=== PATIENT | male | born 1950 | race American Indian/Alaskan Native ===

== ENCOUNTER 2021-03-20 05:35 | Day surgery (SDC) | payer MEDICARE, OTHER ==
[~2021-03-20] VITALS: Ht 175.3 cm; Wt 88.2 kg
[~2021-03-20 05:35] MED LIST: ATORVASTATIN CA40 MG PO; CARVEDILOL12.5 MG PO; D-20002000 UNIT PO; FOLIC ACID1 MG PO; GABAPENTIN300 MG PO; HYDRALAZINE HCL25 MG PO; HYDRALAZINE HCL50 MG PO; IPRATROPIUM BRO15 ML NAS; ISOSORBIDE DINIT5 MG PO; LISINOPRIL5 MG PO; MULTI COMPLETE1 EACH PO; OXYCODONE HCL5 MG PO; RANITIDINE HCL75 MG PO; TREXALL5 MG PO; VENTOLIN HFA18 GM; WARFARIN SODIUM5 MG PO; ZITHROMAX250 MG PO; ZOCOR10 MG PO
[2021-03-20] MEDS ORDERED: GABAPENTIN300 MG PO (08:56)
[2021-03-20] MEDS ORDERED: OXYCODONE HCL5 MG PO (08:56)
[2021-03-20] MEDS ORDERED: SENNA LAX8.6 MG PO (08:56)
--- NOTE | 2021-03-20 09:05 | NUR ---
03/20/21 0905 Cesar,Odilia 0827 PT ARRIVED TO PACU ON 6L VIA MASK, PT SNORING AND NONAROUSABLE. ON-Q IN PLACE SET AT 4. VSS.
--- NOTE | 2021-03-20 09:57 | NUR ---
0945: PT RETURNS TO UNIT FROM PACU VIA STRETCHER. DROWSY ON ARRIVAL, WAKES WITH VERBAL STIMULATION AND ANSWERS QUESTIONS APPROPRIATELY. VSS, RESP EVEN AND UNLABORED. DENIES PAIN AND NAUSEA. DRESSING C/D/I. SCDS AND CRYO CUFF IN PLACE. ICE WATER AND CRACKERS PROVIDED. DENIES NEEDS AND REQUESTS AT THIS TIME, CALL LIGHT WITHIN REACH
--- NOTE | 2021-03-20 11:53 | NUR ---
1130: PT WAKES WHEN THIS RN ENTERS THE ROOM. VSS, RESP EVEN AND UNLABORED. SPINAL BLOCK COMPLETELY WORN OFF AND NORMAL SENSATION RETURNED. DRESSING C/D/I. PT DANGLES AT THE BEDSIDE AND MENDOZA WELL, DENIES DIZZINESS AND SOB. STANDS AT THE BEDSIDE WITH STANDBY ASSISTANCE FROM THIS RN. FIRST SUCCESSFUL POSTOP VOID 300ML. BACK TO STRETCHER WITH RN ASSISTANCE. SCDS AND CRYO CUFF IN PLACE. DENIES PAIN AND NAUSEA. REG LUNCH TRAY EN ROUTE. NO NEEDS VOICED, CALL LIGHT WITHIN REACH
--- NOTE | 2021-03-20 11:57 | NUR ---
1145: REG LUNCH TRAY ARRIVES, NO NEEDS VOICED. CALL LIGHT WITHIN REACH
--- NOTE | 2021-03-20 12:45 | NUR ---
1241: PT COMPLETES REG LUNCH AT THIS TIME. VSS, RESP EVEN AND UNLABORED. DRESSING REMAIN C/D/I. SCDS AND CRYO CUFF IN PLACE. DENIES PAIN AND NAUSEA AT THIS TIME. COMFORTABLE WITHOUT NEEDS OR REQUESTS, CALL LIGHT WITHIN REACH.
--- NOTE | 2021-03-20 13:58 | NUR ---
1345: PT RETURNS TO ROOM 6 AFTER PHYSICAL THERAPY SESSION. CLEARED FOR D/C PER PHYSICAL THERAPIST. PT COMFORTABLE, DENIES PAIN AND NAUSEA AT THIS TIME. DRESSING REMAINS C/D/I. 1400: TC PLACED TO MD SERGIO AND D/C ORDER RECEIVED
--- NOTE | 2021-03-20 14:25 | NUR ---
1420: SECOND DOSE OF ABX ADMINISTERED IV PRIOR TO D/C ORDERED BY . SL FLUSHED. IV REMOVED AND PRESSURE APPLIED TO SITE, WNL. VSS, RESP EVEN AND UNLABORED. DENIES PAIN AND NAUSEA AT THIS TIME. SCDS AND CRYO CUFF REMOVED. D/C INSTRUCTIONS PROVIDED AND DISCUSSED ORDERED. PT VOICES UNDERSTANDING AND DENIES QUESTIONS AND CONCERNS AT THIS TIME. TO DRESS SELF FOR DC, DENIES NEED FOR ASSISTANCE 1435: PT WHEELED OF OF UNIT BY NAOMIE NOLASCO. NO PHYSICAL S/S OF DISTRESS AT THIS TIME
--- NOTE | 2021-03-22 16:21 | OR ---
[facility] [address] [place], [place] [address] Signed DATE OF OPERATION: 03/20/2021 SURGEON: Jessica Cevallos MD PREOPERATIVE DIAGNOSIS: Degenerative joint disease, left knee. POSTOPERATIVE DIAGNOSIS: Degenerative joint disease, left knee. PROCEDURE PERFORMED: Left total knee arthroplasty with Larry. DREDGE WORKER: Hoda Mitchell PA-C. Hoda was present and critical for all portions of procedure. ANESTHESIA: Spinal. BLOOD LOSS: 175 mL. TOURNIQUET TIME: 0. IMPLANTS: [place] Triathlon size 6, 9 mm polyethylene and a 35 mm patella. BRIEF HISTORY: Cynthia is a 70-year-old gentleman with bilateral knee arthritis. He had undergone successful right total knee with good results and wished to proceed with . Risks and benefits of operative treatment were discussed with him and he elected to proceed. DESCRIPTION OF PROCEDURE: Once consent was obtained, he was taken to the operating room. After adequate anesthesia, he was placed on operating room table. All downside pressure points were well padded and hip bump was placed on the left. The leg was then prepped and draped in a standard sterile fashion. The knee was approached through a standard midline incision Electronically Signed By: JESSICA CEVALLOS MD 03/22/21 1621 PATIENT NAME: CYNTHIA YUSUF OPERATIVE REPORT DATE OF : 46 REPORT #: [id number] PHYSICIAN: JESSICA CEVALLOS MD PCP: KAREN HANDY REPORT IS CONFIDENTIAL AND NOT TO BE RELEASED WITHOUT AUTHORIZATION [facility] [address] [place], [place] [address] Signed anteriorly, carried through the skin and subcutaneous tissue. The infrapatellar fat pad was excised and the MCL was elevated as a subperiosteal sleeve around to the posteromedial corner. The patella was subluxed laterally and the anterior horn of the lateral meniscus and the ACL were transected. Medial meniscus was absent. The knee was flexed and the computer check points were placed in the medial femoral condyle and proximal tibia. The computer rays were placed similarly. The leg was then registered with the computer as was the fine anatomic points of the knee. The computer was then brought in and the straight cuts were made starting with the tibia. Care was taken to protect the patellar tendon and MCL. The blade was then switched to the angle blade and the 2 angle cuts were made. All bone pieces were then removed as were any remaining osteophytes. The trials were then positioned and the knee was taken through range of motion and went from 0 to 140 degrees with good stability throughout. The patella was noted to track well. The patella was cut sized and drilled for a 35 mm patella. The femoral drill holes were made and the keel punch was used as well as the drill holes. His bone was good, so we elected to proceed with a non-cemented prosthesis. The tibial component was then impacted until it was well-seated followed by the polyethylene. The femur was impacted in position. The knee was extended and nicely loaded. The patella was clamped into position. Excellent adhesion to the bone was obtained throughout. The knee was then taken through range of motion and found to be stable. The computer rays were removed and the knee was pulse lavaged with 3 L of normal saline. An Irrisept wash was made in the middle. The periarticular soft tissues were injected with 100 mL ropivacaine Toradol mixture. The On-Q pain pump was placed percutaneously into the adductor canal from the suprapatellar pouch. The arthrotomy was then closed using #2 Stratafix, subcutaneous tissue with #0 Stratafix, and skin with dom. Wound was dressed with an Acticoat 7 dressing, ABD, and Yogi wrap. He tolerated the procedure well. He did have a fair amount of bleeding from the wound , so we therefore put 1 g of TXA into the knee at the end of the procedure. He was taken to the recovery room in satisfactory condition. Jessica Cevallos MD BA/MODL /[id number] Copies: Electronically Signed By: JESSICA CEVALLOS MD 03/22/21 1621 PATIENT NAME: CYNTHIA YUSUF OPERATIVE REPORT DATE OF : 46 REPORT #: [id number] PHYSICIAN: JESSICA CEVALLOS MD PCP: KAREN HANDY REPORT IS CONFIDENTIAL AND NOT TO BE RELEASED WITHOUT AUTHORIZATION [address] [place] [address] Signed ~ Electronically Signed By: JESSICA CEVALLOS MD 03/22/21 1621 PATIENT NAME: CYNTHIA YUSUF OPERATIVE REPORT DATE OF : 46 REPORT #: [id number] PHYSICIAN: JESSICA CEVALLOS MD PCP: KAREN HANDY REPORT IS CONFIDENTIAL AND NOT TO BE RELEASED WITHOUT AUTHORIZATION
== END 2021-03-20 14:37 | disposition home or self-care (01) ==
LOC: DS 05:35
PROVIDERS: ATTEND Specialist
PROC: 0SRD0JZ Replacement of Left Knee Joint with Synthetic Substitute, Open Approach (ICD-10-PCS; principal; 2021-03-20 06:45)
DX: M17.12 Unilateral primary osteoarthritis, left knee (principal); G89.18 Other acute postprocedural pain; I48.91 Unspecified atrial fibrillation; G47.30 Sleep apnea, unspecified; J43.9 Emphysema, unspecified; K21.9 Gastro-esophageal reflux disease without esophagitis; E78.00 Pure hypercholesterolemia, unspecified; I12.9 Hypertensive chronic kidney disease with stage 1 through stage 4 chronic kidney disease, or unspecified chronic kidney disease; N18.9 Chronic kidney disease, unspecified; Z79.01 Long term (current) use of anticoagulants; Z87.891 Personal history of nicotine dependence; Z96.651 Presence of right artificial knee joint; Z95.1 Presence of aortocoronary bypass graft
CPT/HCPCS: 0055T; 27447; 01402; 64447; 64450; 76942; 97110; 97162; C1713; C1776; J0690; J1100; J1885; J2001; J2250; J2370; J2405; J2704; J2795; J7040; J7121

== ENCOUNTER 2023-07-04 06:50 | Day surgery (SDC) | payer MEDICARE, OTHER ==
[~2023-07-04] VITALS: Ht 175.3 cm; Wt 93.1 kg
[~2023-07-04 06:50] MED LIST changes: +CEPHALEXIN500 M1 PO; +ELIQUIS5 MG PO; +FAMOTIDINE20 MG PO; +SENNA LAX8.6 MG PO
[2023-07-04 07:13] VITALS: BP 127/86
--- NOTE | 2023-07-04 10:02 | NUR ---
07/04/23 Basia Suarez PT TO PACU SLEEPING ORAL AIRWAY IN PLACE. O2 VIA MASK FOGGING NOTED IN MASK.
[2023-07-04 10:16] VITALS: BP 120/78
--- NOTE | 2023-07-05 06:38 | OR ---
[facility] [address] [place], [place] [address] Signed DATE OF OPERATION: 07/04/2023 SURGEON: Jadon Campoverde MD PREOPERATIVE DIAGNOSES: 1. Personal history of both hyperplastic and tubular adenomatous colonic polyps. 2. Diverticulosis. 3. Minimal internal hemorrhoids. 4. Mother with colon cancer in her 80s. POSTOPERATIVE DIAGNOSES: 1. 4 mm polyp at 6 cm in rectum. 2. 3 mm polyps x2 at 8 cm in rectum. 3. 4 mm polyps x2 at splenic flexure. 4. 3 mm polyp at hepatic flexure. 5. 4 mm polyps x2 at 42 cm in left colon. 6. 4 mm polyps x2 at 20 cm in sigmoid colon. 7. Long redundant left colon. 8. Minimal internal hemorrhoids. 9. [id number] external hemorrhoids (right greater than left). 10. Minimal sigmoid diverticulosis. PROCEDURE: Colonoscopy with hot biopsy. ESTIMATED BLOOD LOSS: None. INDICATIONS: Cynthia is a 73-year-old gentleman, asked to see me for followup colonoscopy. We know he has a personal history of both hyperplastic and tubular adenomatous polyps. He has diverticulosis along with some minimal internal hemorrhoids. In addition, his mother had colon cancer in her 80s. I had helped Cynthia with a colonoscopy in 2010 at the age of 61. At that time, he had just three 4 mm hyperplastic polyps in the rectum. He had done well with Versed and fentanyl. He came back in 2017 at the age of 66. He had a 5 mm tubular adenomatous polyp removed. He had diverticulosis along with minimal internal hemorrhoids and again he had done well with Versed and fentanyl. We kept him on the five year plan. He told me his health has been declining since I have seen him last. He said up to him. He is now in atrial fibrillation and has to follow along with his heart doctor at least once a year. His last appointment was in December 2022. Electronically Signed By: JADON CAMPOVERDE MD 07/05/23 0638 PATIENT NAME: CYNTHIA YUSUF OPERATIVE REPORT DATE OF : 46 REPORT #: [id number] PHYSICIAN: JADON CAMPOVERDE MD PCP: FAIZA HANDY REPORT IS CONFIDENTIAL AND NOT TO BE RELEASED WITHOUT AUTHORIZATION [facility] [address] [place], [place] [address] Signed Fortunately, his left ventricular ejection fraction has been running around 55% to 60%. His left atrium of course is a little dilated. He said he has had a TIA and has some COPD. He also has sleep apnea. He has to use alprazolam and tramadol as well. In that regard, we did use monitored anesthesia care today with propofol infusion. That worked out well. He did require preop blood work and an EKG. He was in atrial fibrillation. In the office, I had given him a pamphlet on colonoscopy. We had reviewed that together. There is risk including, but not limited to gas bloating, crampy abdominal pain, bleeding, perforation requiring surgery, and missed diagnosis. We also reviewed the written instructions for the bowel prep line by line. We had him hold the Eliquis five days prior to the procedure. He said he has done that before. Also, he has bilateral knee replacements along with his rheumatoid arthritis. Consequently, we gave him preoperative antibiotics with Ancef. He knows an adult person has to take him home afterwards. He had expressed understanding and wished to proceed. DESCRIPTION OF PROCEDURE: Cynthia was taken into our endoscopy suite and placed in the left lateral decubitus position. He was given monitored anesthesia care with propofol infusion per our nurse straw hat washer operator. A digital rectal exam was performed. Indeed he has moderate to severe external hemorrhoid on the right. Posteriorly, one was thrombosed. He had good sphincter tone. There were no masses internally. The adult colonoscope was introduced and advanced under direct visualization of the camera. Unfortunately, his prep was not the best on this occasion. He probably could benefit from some additional prep in the future. He has a long redundant left colon. We eventually made our way around the hepatic flexure with quite a bit of abdominal compression. We had to move him into the supine position and we eventually got the camera down to the cecum. We did not specifically see any pathology in the cecum itself. The scope was then slowly withdrawn. We had taken pictures throughout for photodocumentation. We removed the above mentioned polyps with the help of hot biopsy forceps. Again, we could sense that he has a long redundant left colon. He does have some diverticula in the sigmoid colon. They were moderate in size but few in number and scattered about. Once in the rectum, the scope had been retroflexed and really he only had minimal internal hemorrhoid tissue. After this, the gas was suctioned out and the colonoscope removed. Cynthia tolerated the procedure quite well. RECOMMENDATIONS: I will see Cynthia back in my office in 7 to 14 days to review his results. He should probably come on a shorter interval say three years or less. He should probably increase his bowel prep. He used half gallon of polyethylene glycol along with Dulcolax tablets. Electronically Signed By: JADON CAMPOVERDE MD 07/05/23 0638 PATIENT NAME: CYNTHIA YUSUF OPERATIVE REPORT DATE OF : 46 REPORT #: [id number] PHYSICIAN: JADON CAMPOVERDE MD PCP: FAIZA HANDY REPORT IS CONFIDENTIAL AND NOT TO BE RELEASED WITHOUT AUTHORIZATION [address] [place] [address] Signed Jadon [address] [facility] /[id number] cc: [facility], [place] MD Faiza Ramsey FNP Copies: JADON CAMPOVERDE MD, [facility], [facility] ~ Electronically Signed By: JADON CAMPOVERDE MD 07/05/23 0638 PATIENT NAME: CYNTHIA YUSUF OPERATIVE REPORT DATE OF : 46 REPORT #: [id number] PHYSICIAN: JADON CAMPOVERDE MD PCP: FAIZA HANDY REPORT IS CONFIDENTIAL AND NOT TO BE RELEASED WITHOUT AUTHORIZATION
--- NOTE | 2023-07-12 15:31 | PATH ---
[facility] [address] [place], [place] [address] Signed SPECIMEN(S): A RECTAL COLON POLYP AT 6 CM SPECIMEN(S): B COLON POLYP AT 8 CM SPECIMEN(S): C SPLENIC FLEXURE COLON POLYP SPECIMEN(S): D HEPATIC FLEXURE COLON POLYP SPECIMEN(S): E DESCENDING/LEFT COLON POLYP AT 42 CM SPECIMEN(S): F SIGMOID COLON POLYP AT 28 CM SPECIMEN(S): G COLON POLYP AT 22 CM SPECIMEN SOURCE: A. RECTAL COLON POLYP AT 6 CM B. COLON POLYP AT 8 CM C. SPLENIC FLEXURE COLON POLYP D. HEPATIC FLEXURE COLON POLYP E. DESCENDING/LEFT COLON POLYP AT 42 CM F. SIGMOID COLON POLYP AT 28 CM G. COLON POLYP AT 22 CM CLINICAL HISTORY: Colonoscopy. Colon polyps, diverticulosis, hemorrhoids, family history of colon cancer FINAL PATHOLOGIC DIAGNOSIS: A. Rectum, polyp at 6 cm, biopsy: - Hyperplastic polyp. B. Colon, polyp at 8 cm, biopsy: - Hyperplastic polyp. C. Colon, splenic flexure, polypectomy: - Multiple fragments of tubular adenoma. D. Colon, hepatic flexure, polypectomy: - No significant histopathology. - There is no evidence of neoplasia. E. Colon, descending/left, polyp at 42 cm, biopsy: - Benign colonic mucosa with prominent intramucosal lymphoid aggregate, 1 fragment. - Hyperplastic polyp, 1 fragment. - There is no evidence of neoplasia. F. Colon, sigmoid, polyp at 28 cm, biopsy: - Benign colonic mucosa with prominent intramucosal lymphoid aggregate. - There is no evidence of neoplasia. G. Colon, polyp at 22 cm, biopsy: - Hyperplastic polyps (2). PATIENT NAME: CYNTHIA YUSUF PATHOLOGY DATE OF : 46 REPORT #: [id number] PHYSICIAN: SHREE YOUNG PCP: KAREN HANDY REPORT IS CONFIDENTIAL AND NOT TO BE RELEASED WITHOUT AUTHORIZATION [facility] [address] [place], [place] [address] Signed COMMENT: A, B. There is no evidence of dysplasia or malignancy. C. There is no evidence of high grade dysplasia or malignancy. D. The sections from the specimen are architecturally normal without crypt distortion. There is no acute or chronic inflammation. There are no abnormal infiltrates. There is no evidence of inflammatory, hyperplastic or adenomatous polyps. E, F. Sections of colonic tissue demonstrate a benign intramucosal lymphoid aggregate. Intramucosal lymphoid aggregates can sometimes appear as polyps endoscopically. They have no clinical significance. There is no evidence of dysplasia or malignancy. G. There is no evidence of dysplasia or malignancy. K MICROSCOPIC EXAMINATION: Histologic sections of all submitted blocks are examined by light microscopy. These findings, together with the gross examination, support the pathologic diagnosis. GROSS DESCRIPTION: A. The specimen, labeled and designated "Sahil, rectum polyp at 6 cm," is received in formalin and consists of one wills soft tissue fragment, 0.1 cm. Entirely submitted in (A1). B. The specimen, labeled and designated "Sahil, colon polyp at 8 cm," is received in formalin and consists of one wills soft tissue fragment, 0.2 cm. Entirely submitted in (B1). C. The specimen, labeled and designated "Sahil, splenic flexure polyp," is received in formalin and consists of three wills soft tissue fragments, ranging from 0.1-0.2 cm. Entirely submitted in (C1). D. The specimen, labeled and designated "Sahil, hepatic flexure polyp," is received in formalin and consists of one wills soft tissue fragment, 0.1 cm. Entirely submitted in (D1). E. The specimen, labeled and designated "Sahil, descending colon polyp at 42 cm," is received in formalin and consists of two wills soft tissue fragments, ranging from 0.2 cm. Entirely submitted in (E1). F. The specimen, labeled and designated "Sahil, sigmoid colon polyp at 28 cm," is received in formalin and consists of two wills soft tissue fragments, ranging from 0.1-0.2 cm. Entirely submitted in (F1). PATIENT NAME: CYNTHIA YUSUF PATHOLOGY DATE OF : 46 REPORT #: [id number] PHYSICIAN: SHREE YOUNG PCP: KAREN HANDY REPORT IS CONFIDENTIAL AND NOT TO BE RELEASED WITHOUT AUTHORIZATION [address] [address] Signed G. The specimen, labeled and designated "Sahil, colon polyp at 22 cm," is received in formalin and consists of three wills soft tissue fragments, ranging from 0.2 cm. Entirely submitted in (G1). JS (under the direct supervision of a pathologist) The Gross Description was prepared using a voice recognition system. The report was reviewed for accuracy; however, sound-alike word errors, addition and/or deletions may occur. If there is any question about this report, please contact Client Services. ADDITIONAL NOTES: Immunohistochemical and/or in situ hybridization studies if performed in this case included appropriate positive controls that reacted as expected. This test was developed and its performance characteristics determined by [facility]. It has not been cleared or approved by the U.S. Food and Drug Administration. The FDA has determined that such clearance or approval is not necessary. This test is used for clinical purposes. It should not be regarded as investigational or for research. [facility] is certified under the Clinical Laboratory Improvement Amendments of 1988 (CLIA) as qualified to perform high complexity clinical laboratory testing. PERFORMING LABORATORY: Technical component was performed by [facility], [address] [place] [id number] (CLIA# [id number]). Professional interpretation was performed by [facility], [address] [place] [address] (CLIA#:[id number]). Diagnostician: Carlos White MD Pathologist Electronically Signed 07/12/2023 Copies: ~ PATIENT NAME: CYNTHIA YUSUF PATHOLOGY DATE OF : 46 REPORT #: [id number] PHYSICIAN: [facility] PCP: KAREN HANDY REPORT IS CONFIDENTIAL AND NOT TO BE RELEASED WITHOUT AUTHORIZATION
== END 2023-07-04 10:45 | disposition home or self-care (01) ==
LOC: DS 06:50 → OPS 06:50 → DS 09:45 → OPS 10:45
PROVIDERS: ATTEND Colon & Rectal Surgery
PROC: 0DBL8ZX Excision of Transverse Colon, Via Natural or Artificial Opening Endoscopic, Diagnostic (ICD-10-PCS; 2023-07-04)
PROC: 0DBN8ZX Excision of Sigmoid Colon, Via Natural or Artificial Opening Endoscopic, Diagnostic (ICD-10-PCS; 2023-07-04)
PROC: 0DBP8ZX Excision of Rectum, Via Natural or Artificial Opening Endoscopic, Diagnostic (ICD-10-PCS; 2023-07-04)
PROC: 0DBG8ZX Excision of Left Large Intestine, Via Natural or Artificial Opening Endoscopic, Diagnostic (ICD-10-PCS; principal; 2023-07-04 08:45)
DX: Z12.11 Encounter for screening for malignant neoplasm of colon (principal); D12.3 Benign neoplasm of transverse colon; K63.5 Polyp of colon; K62.1 Rectal polyp; Q43.8 Other specified congenital malformations of intestine; K64.8 Other hemorrhoids; K64.5 Perianal venous thrombosis; K57.30 Diverticulosis of large intestine without perforation or abscess without bleeding; Z86.010 Personal history of colon polyps; I12.9 Hypertensive chronic kidney disease with stage 1 through stage 4 chronic kidney disease, or unspecified chronic kidney disease; N18.30 Chronic kidney disease, stage 3 unspecified; E78.2 Mixed hyperlipidemia; I48.0 Paroxysmal atrial fibrillation; J44.9 Chronic obstructive pulmonary disease, unspecified; G47.33 Obstructive sleep apnea (adult) (pediatric); M06.9 Rheumatoid arthritis, unspecified; I25.10 Atherosclerotic heart disease of native coronary artery without angina pectoris; Z95.1 Presence of aortocoronary bypass graft; Z86.73 Personal history of transient ischemic attack (TIA), and cerebral infarction without residual deficits; Z88.5 Allergy status to narcotic agent; Z79.01 Long term (current) use of anticoagulants; Z79.899 Other long term (current) drug therapy
CPT/HCPCS: 00811; 88305; J0690; J1160; J2371; J2704; J7121